=== PATIENT | female | born 1935 | race Caucasian/White ===

== ENCOUNTER 2018-04-20 11:21 | Emergency (ER) | payer MEDICARE, BC ==
[~2018-04-20 11:21] MED LIST: ASPI81TA52 PO; ATOR10TA87 PO; SYN0.088T PO
[2018-04-20 11:43] LABS: BASOPHILS % (AUTO) 0.4 % (0-1); EOSINOPHILS # (AUTO) 0.1 X10'3 (0-0.9); EOSINOPHILS % (AUTO) 1.3 % (0-6); HEMATOCRIT 43.6 % (35.0-45.0); LYMPHOCYTES # (AUTO) 1.4 X10'3 (1.1-4.8); LYMPHOCYTES % (AUTO) 20.1 % (21-51); MEAN CORPUSCULAR HEMOGLOBIN 31.9 PG (27.0-31.0); MEAN CORPUSCULAR HGB CONC 34.4 % (33.0-36.5); MEAN CORPUSCULAR VOLUME 92.8 FL (78-98); MONOCYTES # (AUTO) 0.5 X10'3 (0-0.9); MONOCYTES % (AUTO) 6.7 % (2-12); NEUTROPHILS # (AUTO) 5.1 X10'3 (1.8-7.7); NEUTROPHILS % (AUTO) 71.5 % (42-75); PLATELET COUNT 188 X10'3 (140-440); RED BLOOD COUNT 4.69 X10'6 (4.20-5.60); RED CELL DISTRIBUTION WIDTH 13.3 % (11.5-14.5); WHITE BLOOD COUNT 7.2 X10'3 (4.5-11.0)
[2018-04-20 11:53] LABS: PARTIAL THROMBOPLASTIN TIME 24 SECONDS (22-32)
[2018-04-20 11:57] LABS: ALANINE AMINOTRANSFERASE 43 U/L (12-78); ALBUMIN 3.6 G/DL (3.4-5.0); ALKALINE PHOSPHATASE 75 IU/L (46-116); ANION GAP 9 (8-16); ASPARTATE AMINO TRANSFERASE 30 U/L (10-37); BILIRUBIN,TOTAL 0.4 MG/DL (0.1-1.0); BLOOD UREA NITROGEN 19 MG/DL (7-18); BUN/CREATININE RATIO 20.7 (6.6-38.0); CALCIUM 9.1 MG/DL (8.5-10.1); CHLORIDE 104 MMOL/L (99-107); CREATININE 0.92 MG/DL (0.40-0.90); GLUCOSE 105 MG/DL (70-104); POTASSIUM 4.3 MMOL/L (3.5-5.1); SODIUM 138 MMOL/L (135-145); TOTAL CARBON DIOXIDE 25.4 MMOL/L (24-32); TOTAL PROTEIN 7.1 G/DL (6.4-8.2); eGFR 58 ML/MIN
[2018-04-20 14:53] VITALS: BP 156/80
== END 2018-04-20 14:54 | disposition home or self-care (01) ==
LOC: ER 11:21
DX: N64.4 Mastodynia (principal); N18.9 Chronic kidney disease, unspecified; E78.00 Pure hypercholesterolemia, unspecified; Z90.710 Acquired absence of both cervix and uterus; Z98.890 Other specified postprocedural states; Z88.2 Allergy status to sulfonamides; Z79.82 Long term (current) use of aspirin; Z79.899 Other long term (current) drug therapy
CPT/HCPCS: 36415; 71045; 80053; 84484; 85025; 85610; 85730; 93005; 99285

== ENCOUNTER 2019-09-10 11:26 | Emergency (ER) | payer MEDICARE, BC ==
[~2019-09-10] VITALS: Ht 160 cm; Wt 55.9 kg
[2019-09-10 13:28] LABS: BASOPHILS % (AUTO) 0.7 % (0-1); EOSINOPHILS # (AUTO) 0.1 X10'3 (0-0.9); EOSINOPHILS % (AUTO) 0.9 % (0-6); HEMATOCRIT 42.9 % (35.0-45.0); HEMOGLOBIN 14.4 g/dl (12.0-16.0); LYMPHOCYTES # (AUTO) 1.4 X10'3 (1.1-4.8); LYMPHOCYTES % (AUTO) 18.8 % (21-51); MEAN CORPUSCULAR HEMOGLOBIN 32.2 PG (27.0-31.0); MEAN CORPUSCULAR HGB CONC 33.6 g/dL (33.0-36.5); MEAN CORPUSCULAR VOLUME 95.7 FL (78-98); MEAN PLATELET VOLUME 8.2 FL (7.4-10.4); MONOCYTES # (AUTO) 0.5 X10'3 (0-0.9); MONOCYTES % (AUTO) 6.8 % (2-12); NEUTROPHILS # (AUTO) 5.4 X10'3 (1.8-7.7); NEUTROPHILS % (AUTO) 72.8 % (42-75); PLATELET COUNT 204 X10'3 (140-440); RED BLOOD COUNT 4.48 X10'6 (4.20-5.60); RED CELL DISTRIBUTION WIDTH 13.1 % (11.5-14.5); WHITE BLOOD COUNT 7.4 X10'3 (4.5-11.0)
[2019-09-10 13:42] LABS: ALANINE AMINOTRANSFERASE 20 U/L (12-78); ALBUMIN 3.7 G/DL (3.4-5.0); ALBUMIN/GLOBULIN RATIO 1.2 (1.1-1.5); ALKALINE PHOSPHATASE 75 IU/L (46-116); ANION GAP 7 (8-16); ASPARTATE AMINO TRANSFERASE 24 U/L (10-37); BILIRUBIN,TOTAL 0.7 MG/DL (0.1-1.0); BLOOD UREA NITROGEN 17 MG/DL (7-18); BUN/CREATININE RATIO 18.3 (6.6-38.0); CALCIUM 8.7 MG/DL (8.5-10.1); CHLORIDE 104 MMOL/L (99-107); CREATININE 0.93 MG/DL (0.40-0.90); GLUCOSE 95 MG/DL (70-104); POTASSIUM 3.9 MMOL/L (3.5-5.1); SODIUM 140 MMOL/L (135-145); TOTAL CARBON DIOXIDE 28.8 MMOL/L (24-32); TOTAL PROTEIN 6.8 G/DL (6.4-8.2); eGFR 58 ML/MIN
[2019-09-10 14:09] LABS: CLARITY,URINE CLEAR (Clear); COLOR,URINE YELLOW (Yellow); GLUCOSE, URINE NEGATIVE (Neg); KETONES,URINE NEGATIVE (Neg); LEUKOCYTE ESTERASE ,URINE NEGATIVE (Neg); NITRITES, URINE NEGATIVE (Neg); OCCULT BLOOD,URINE NEGATIVE (Neg); PROTEIN,URINE NEGATIVE (Neg); UA COLLECTION TYPE CLN CATCH MIDSTREAM; UROBILINOGEN,URINE 0.2 E.U/dL (0.2-1.0)
[2019-09-10 14:31] VITALS: BP 156/79
== END 2019-09-10 14:34 | disposition home or self-care (01) ==
LOC: ER 11:27
DX: R10.31 Right lower quadrant pain (principal); M70.60 Trochanteric bursitis, unspecified hip; E78.00 Pure hypercholesterolemia, unspecified; Z90.710 Acquired absence of both cervix and uterus; Z98.890 Other specified postprocedural states; Z88.2 Allergy status to sulfonamides; Z79.82 Long term (current) use of aspirin; Z79.899 Other long term (current) drug therapy
CPT/HCPCS: 36415; 74176; 80053; 81003; 85025; 99284

== ENCOUNTER 2019-10-12 09:19 | Inpatient (IN) | payer MEDICARE, BC ==
[2019-10-07 10:36] LABS: BASOPHILS % (AUTO) 0.8 % (0-1); EOSINOPHILS # (AUTO) 0.1 X10'3 (0-0.9); LYMPHOCYTES # (AUTO) 1.2 X10'3 (1.1-4.8); LYMPHOCYTES % (AUTO) 20.7 % (21-51); MEAN CORPUSCULAR HEMOGLOBIN 32.6 PG (27.0-31.0); MEAN CORPUSCULAR HGB CONC 34.2 g/dL (33.0-36.5); MEAN CORPUSCULAR VOLUME 95.4 FL (78-98); MEAN PLATELET VOLUME 7.7 FL (7.4-10.4); MONOCYTES # (AUTO) 0.4 X10'3 (0-0.9); MONOCYTES % (AUTO) 7.5 % (2-12); PRE OP HEMATOCRIT 40.8 % (35.0-45.0); PRE OP HEMOGLOBIN 13.9 g/dL (12.0-16.0); PRE OP PLATELET COUNT 209 X10'3 (140-440); RED BLOOD COUNT 4.27 X10'6 (4.20-5.60); RED CELL DISTRIBUTION WIDTH 13.6 % (11.5-14.5)
[2019-10-07 10:39] LABS: CLARITY,URINE SLIGHTLY CLOUDY (Clear); COLOR,URINE STRAW (Yellow); GLUCOSE, URINE NEGATIVE (Neg); KETONES,URINE NEGATIVE (Neg); LEUKOCYTE ESTERASE ,URINE SMALL (Neg); NITRITES, URINE NEGATIVE (Neg); OCCULT BLOOD,URINE NEGATIVE (Neg); PROTEIN,URINE NEGATIVE (Neg); UROBILINOGEN,URINE 0.2 E.U/dL (0.2-1.0)
[2019-10-07 10:40] LABS: UA COLLECTION TYPE CLN CATCH MIDSTREAM
[2019-10-07 10:47] LABS: BACTERIA,URINE 1+ /HPF (Neg); RBC,URINE 0-2 /HPF (0-2); SQUAMOUS EPITHELIAL CELL,UR MODERATE /LPF (FEW)
[2019-10-07 10:48] LABS: WBC,URINE 0-4 /HPF (0-4)
[2019-10-07 10:53] LABS: ALBUMIN 3.5 G/DL (3.4-5.0); ALBUMIN/GLOBULIN RATIO 1.1 (1.1-1.5); ALKALINE PHOSPHATASE 78 IU/L (46-116); BLOOD UREA NITROGEN 19 MG/DL (7-18); BUN/CREATININE RATIO 20.2 (6.6-38.0); CALCIUM 8.6 MG/DL (8.5-10.1); CHLORIDE 109 MMOL/L (99-107); CREATININE 0.94 MG/DL (0.40-0.90); PRE OP ALT 30 U/L (30-65); PRE OP ANION GAP 3 (8-16); PRE OP AST 26 U/L (10-37); PRE OP BILIRUB, TOTAL 0.4 MG/DL (0.0-1.0); PRE OP GLUCOSE 93 MG/DL (70-104); PRE OP POTASSIUM 3.9 MMOL/L (3.4-5.1); PRE OP SODIUM 143 MMOL/L (135-145); TOTAL CARBON DIOXIDE 30.6 MMOL/L (24-32); TOTAL PROTEIN 6.7 G/DL (6.4-8.2); eGFR 57 ML/MIN
[~2019-10-12] VITALS: Ht 160 cm; Wt 57.7 kg
[2019-10-12] VITALS (17 sets, daily range): BP systolic 105–164; BP diastolic 54–82
[~2019-10-12 09:19] MED LIST changes: -ASPI81TA52 PO; +cefazolin/dext.iso 2gm/100ml 100 ML IV ONE; +famotidine 10mg tablet PO ONE; +ringers solution, lacted 1,000 ML IV SCH
[2019-10-12] MEDS ORDERED: ringers solution, lacted 1,000 ML IV SCH (16:18)
[2019-10-12] MEDS ORDERED: fentaNYL/PF 50MCG/1 ML 2ML syringe IV PRN ×2 (16:20)
[2019-10-12] MEDS ORDERED: labetalol 20mg/4ml (5mg/ml) syringe IV PRN (16:20)
[2019-10-12] MEDS ORDERED: morphine 4 MG/ML inj SYRINge IV PRN (16:20)
[2019-10-12] MEDS ORDERED: ondansetron/PF 4mg/2ml inj IV PRN ×3 (16:20→20:45)
[2019-10-12] MEDS ORDERED: hydrALAZINE 20mg/ml inj. IV PRN (16:20)
[2019-10-12] MEDS ORDERED: BUPIVAcaine/PF 2.5 mg/ml (0.25%) 30ml vial ONE (16:53)
[2019-10-12] MEDS ORDERED: BUPIVACAINE liposomal/PF 13.3 MG/ML vial IM ONE (16:53)
[2019-10-12] MEDS ORDERED: sevoflurane 250ml liquid IH ONE (17:36)
[2019-10-12] MEDS ORDERED: propofol inj 20 ML IV ONE (17:42)
[2019-10-12] MEDS ORDERED: fentaNYL/PF 50MCG/1 ML 2ML syringe ONE (17:42)
[2019-10-12] MEDS ORDERED: ceFAZolin 1000mg inj ONE (17:56)
[2019-10-12] MEDS ORDERED: dexamethasone sod phosphate 4mg/ml inj. ONE (18:04)
[2019-10-12] MEDS ORDERED: ondansetron/PF 4mg/2ml inj ONE (18:04)
[2019-10-12] MEDS ORDERED: albumin (Human) 5% 250ml 250 ML IV ONE (18:40)
--- NOTE | 2019-10-12 19:18 | NUR ---
Received from OR via [facility], accompanied by Anesthesiologist DR ARAUZ and report given by Anesthesiologist. PT DROWSY, DENIES PAIN, RIGHT GROIN W/FOAM TAPE COVERING INCISION CDI. Addendum: 10/12/19 at 2028 by Luz Shah RN Amended: Links added.
[2019-10-12] MEDS: morphine 4 MG/ML inj SYRINge IV PRN ×2 (20:01→20:15)
[2019-10-12] MEDS ORDERED: acetaminophen 1,000mg/100ml IV 100 ML IV ONE (20:20)
[2019-10-12] MEDS ORDERED: ketorolac trometh. 30mg/ml inj. IV ONE (20:20)
[2019-10-12] MEDS ORDERED: normal saline 1000ml 1,000 ML IV SCH (20:41)
[2019-10-12] MEDS ORDERED: mag hydrox/Alum hydrox/simeth 30ml oral suspension PO PRN (20:45)
[2019-10-12] MEDS ORDERED: HYDROcodone/acetaminophen 10/325mg tab PO PRN (20:45)
[2019-10-12] MEDS ORDERED: magnesium hydroxide 30ml (MOM) UD suspension PO PRN (20:45)
[2019-10-12] MEDS ORDERED: acetaminophen 325mg tablet PO PRN (20:45)
[2019-10-12] MEDS ORDERED: HYDROcodone/acetaminophen 5mg/325mg tablet PO PRN (20:45)
--- NOTE | 2019-10-12 21:28 | NUR ---
Report called to receiving nurse. Transferred via BED, 1 BAG OF PERSONAL Belongings SENT W/PT TO ROOM 349B, RECEIVING RN AT BEDSIDE TO RECEIVE PT, BLL, CALL LIGHT GIVEN, SIDE RAILS UP X 2. Special Issues communicated to receiving nurse. YES. Addendum: 10/12/19 at 2137 by Luz Shah RN Amended: Links added.
--- NOTE | 2019-10-12 21:35 | NUR ---
Patient in room [facility] 349. I have received report from and had the opportunity to ask questions and assume patient care.
--- NOTE | 2019-10-12 22:00 | NUR ---
Pt arrived on the unit via gurney. VSS, no signs of distress. Will continue to monitor.
[2019-10-13] VITALS: BP 108/56
--- NOTE | 2019-10-13 06:30 | NUR ---
Problems reprioritized. Patient report given, questions answered & plan of care reviewed with Harriet MOSLEY.
--- NOTE | 2019-10-13 06:33 | NUR ---
Patient in room [facility] 349. I have received report from Luz MOSLEY and had the opportunity to ask questions and assume patient care. Addendum: 10/13/19 at 0645 by Beckie Duran RN entered incorrect time, report received at 2687 on 10-12-19
--- NOTE | 2019-10-13 06:33 | NUR ---
Patient in room [facility] 349. I have received report from DIMITRI Levin and had the opportunity to ask questions and assume patient care.
--- NOTE | 2019-10-13 06:36 | NUR ---
Problems reprioritized. Patient report given, questions answered & plan of care reviewed with Harriet MOSLEY.
[2019-10-13] MEDS ORDERED: levoTHYROXINE 75mcg tablet PO SCH (07:30)
[2019-10-13 08:00] VITALS: BP 130/61
[2019-10-13] MEDS ORDERED: atorvastatin 10mg tablet PO SCH (08:00)
[2019-10-13 11:00] VITALS: BP 115/59
--- NOTE | 2019-10-13 14:42 | NUR ---
pt. discharged from facility at 1315. pt. was wheeled to private vehicle accompanied by staff and her . pt. signed and understood all paperwork. IV was d/c intact. pt. understands to call to make f/u appointments and has Dr. Munoz's office number. pt. had no new meds to call in. pt. left with all belongings.
[2019-10-15] MEDS ORDERED: ACET-3068 PO (12:56)
[2019-10-15] MEDS ORDERED: LEVO75TA PO (12:56)
--- NOTE | 2019-10-15 14:25 | NUR ---
Case Management DC follow-up: LM/VM asked pt to rtn phone call if any questions/concerns or to relay post op status of pt.
== END 2019-10-13 13:19 | disposition home or self-care (01) | DRG 352 ==
LOC: PAS 09:19 → SUR 3N 20:41 → OBSVTOIN 10-13 08:40
PROVIDERS: ADMIT Surgery; ATTEND Surgery
PROC: 0YU70JZ Supplement Right Femoral Region with Synthetic Substitute, Open Approach (ICD-10-PCS; principal; 2019-10-12 17:36)
DX: K40.91 Unilateral inguinal hernia, without obstruction or gangrene, recurrent (principal)
CPT/HCPCS: 36415; 80053; 81001; 82948; 84443; 85025; 87077; 87081; 87088; 87186; 93005; A4215; A4618; A6449; A7000; C1781; C9290; G0378; J0131; J0690; J1100; J1885; J2270; J2405; J2704; J3010; J3490; J7030; J7120; P9045

== ENCOUNTER 2023-05-23 08:53 | Inpatient (IN) | payer MEDICARE, BC ==
[~2023-05-23] VITALS: Ht 162.6 cm; Wt 58.0 kg
[~2023-05-23 08:53] MED LIST changes: +APIX5TAB3 PO; -ATOR10TA87 PO; +FURO-150 PO; +LEVO88TA2 PO; +ROSU10TA28 PO; -SYN0.088T PO; -cefazolin/dext.iso 2gm/100ml 100 ML IV ONE; -famotidine 10mg tablet PO ONE; -ringers solution, lacted 1,000 ML IV SCH
[2023-05-23 10:21] LABS: BASOPHILS % (AUTO) 0.4 % (0-1); EOSINOPHILS % (AUTO) 0.5 % (0-6); HEMATOCRIT 43.8 % (35.0-45.0); HEMOGLOBIN 14.6 g/dl (12.0-16.0); LYMPHOCYTES # (AUTO) 1.2 X10'3 (1.1-4.8); LYMPHOCYTES % (AUTO) 15.9 % (21-51); MEAN CORPUSCULAR HEMOGLOBIN 31.6 PG (27.0-31.0); MEAN CORPUSCULAR HGB CONC 33.3 g/dL (33.0-36.5); MEAN CORPUSCULAR VOLUME 94.9 FL (78-98); MEAN PLATELET VOLUME 8.1 FL (7.4-10.4); MONOCYTES # (AUTO) 0.5 X10'3 (0-0.9); NEUTROPHILS # (AUTO) 5.8 X10'3 (1.8-7.7); NEUTROPHILS % (AUTO) 76.2 % (42-75); PLATELET COUNT 179 X10'3 (140-440); RED BLOOD COUNT 4.61 X10'6 (4.20-5.60); RED CELL DISTRIBUTION WIDTH 14.2 % (11.5-14.5); WHITE BLOOD COUNT 7.6 X10'3 (4.5-11.0)
[2023-05-23 10:41] LABS: ALANINE AMINOTRANSFERASE 30 U/L (12-78); ALBUMIN 3.7 G/DL (3.4-5.0); ALBUMIN/GLOBULIN RATIO 1.1 (1.1-1.5); ALKALINE PHOSPHATASE 70 IU/L (46-116); AMYLASE 71 U/L (25-115); ANION GAP 9 (8-16); ASPARTATE AMINO TRANSFERASE 22 U/L (10-37); BILIRUBIN,TOTAL 0.9 MG/DL (0.1-1.0); BLOOD UREA NITROGEN 12 MG/DL (7-18); BUN/CREATININE RATIO 15.4 (10.0-20.0); CALCIUM 8.9 MG/DL (8.5-10.1); CHLORIDE 106 MMOL/L (99-107); CREATININE 0.78 MG/DL (0.40-0.90); GLUCOSE 94 MG/DL (70-104); LIPASE 151 U/L (73-393); POTASSIUM 3.2 MMOL/L (3.5-5.1); SODIUM 141 MMOL/L (135-145); TOTAL CARBON DIOXIDE 26.5 MMOL/L (24-32); TOTAL PROTEIN 7.2 G/DL (6.4-8.2); eCRCL 44 ML/MIN; eGFR 70 ML/MIN
[2023-05-23] MEDS ORDERED: diatrozoate meglu/diatrozoate sod (37% iodine) 120ML oral solution PO SCH (12:55)
--- NOTE | 2023-05-23 12:56 | NUR ---
RECEIVED REPORT FROM LAYLA MOSLEY ASSUMING CARE OF PT
[2023-05-23] MEDS ORDERED: Potassium Cl inj 20 MEQ in normal saline 1000ml 990 ML IV SCH (13:10)
[2023-05-23] MEDS ORDERED: diatr meglu/diatrizoate 30ml oral sol.-(3 dose) bottle PO SCH (13:47)
[2023-05-23] MEDS: potassium Cl 20mEq in NS 1,000 ML IV SCH ×2 (13:56→23:15)
--- NOTE | 2023-05-23 14:23 | NUR ---
[id number] plan of care discussed with pt all questions and concerns addressed to her verbal satisfaction. Gastrographin oral contrast started.
--- NOTE | 2023-05-23 14:52 | NUR ---
correction pt will have colonoscopy tomorrow not endoscopy. 2nd dose gastrografin admin pt tolerating it well
[2023-05-23] MEDS ORDERED: iohexol 300mg/ml 100ml inj. ONE (15:46)
--- NOTE | 2023-05-23 15:52 | NUR ---
1430 #3 dose gastrografin admin. pt to ct via wc with tech
[2023-05-23 17:45] LABS: MAGNESIUM 2.1 MG/DL (1.5-2.4)
--- NOTE | 2023-05-23 18:48 | NUR ---
echo at bedside
[2023-05-23] MEDS ORDERED: ondansetron/PF 4mg/2ml inj IV PRN (19:30)
[2023-05-23] MEDS ORDERED: magnesium 2GM in 50ml NS 50 ML IV PRN (19:30)
[2023-05-23] MEDS ORDERED: potassium Cl 40MEQ/1/2NS 520ml 520 ML IV PRN (19:30)
[2023-05-23] MEDS ORDERED: potassium Cl 20 mEq SR tablet PO PRN (19:30)
[2023-05-23] MEDS ORDERED: magnesium Cl slow-release 64mg tablet PO PRN (19:30)
[2023-05-23] MEDS ORDERED: HYDROmorphone/PF 0.2 MG/ML SYRINGE IV PRN (19:30)
[2023-05-23] MEDS ORDERED: magnesium 4gm in 100ml NS 100 ML IV PRN (19:30)
[2023-05-23] MEDS ORDERED: metoclopramide 5 mg/ml inj IV PRN (19:30)
[2023-05-23] MEDS ORDERED: morphine 2 MG/ML inj. syringe IV PRN (19:30)
[2023-05-23 19:53] LABS: APTT 27 SECONDS (22-32); PROTHROMBIN TIME 10.8 SECONDS (9.0-12.0)
--- NOTE | 2023-05-23 21:21 | NUR ---
PT AMBULATED TO RESTROOM
[2023-05-23] MEDS: potassium Cl 20 mEq SR tablet PO PRN (21:41)
[2023-05-23] MEDS: K and/or MAG REPLACEMENT MC SCH (21:41)
[2023-05-23] MEDS: normal saline 1000ml 1,000 ML IV SCH (21:42)
[2023-05-23 22:02] LABS: BILIRUBIN,URINE NEGATIVE (Neg); CLARITY,URINE CLEAR (Clear); COLOR,URINE YELLOW (Yellow); GLUCOSE, URINE NEGATIVE (Neg); KETONES,URINE NEGATIVE (Neg); LEUKOCYTE ESTERASE ,URINE NEGATIVE (Neg); NITRITES, URINE NEGATIVE (Neg); OCCULT BLOOD,URINE NEGATIVE (Neg); PROTEIN,URINE NEGATIVE (Neg); UROBILINOGEN,URINE 0.2 E.U/dL (0.2-1.0)
[2023-05-23 22:09] LABS: UA COLLECTION TYPE CLN CATCH MIDSTREAM
[2023-05-24] VITALS (11 sets, daily range): BP systolic 101–161; BP diastolic 52–92; PULSE 49–96; RESP 15–20; TEMP 97.8–98.4; O2SAT 96–100
[2023-05-24] MEDS: potassium Cl 20 mEq SR tablet PO PRN (04:23)
[2023-05-24 04:54] LABS: BASOPHILS % (AUTO) 0.5 % (0-1); EOSINOPHILS # (AUTO) 0.1 X10'3 (0-0.9); EOSINOPHILS % (AUTO) 1.3 % (0-6); HEMATOCRIT 43.5 % (35.0-45.0); HEMOGLOBIN 14.4 g/dl (12.0-16.0); LYMPHOCYTES # (AUTO) 1.1 X10'3 (1.1-4.8); LYMPHOCYTES % (AUTO) 22.7 % (21-51); MEAN CORPUSCULAR HEMOGLOBIN 31.3 PG (27.0-31.0); MEAN CORPUSCULAR VOLUME 94.8 FL (78-98); MEAN PLATELET VOLUME 8.5 FL (7.4-10.4); MONOCYTES # (AUTO) 0.5 X10'3 (0-0.9); NEUTROPHILS # (AUTO) 3.3 X10'3 (1.8-7.7); NEUTROPHILS % (AUTO) 66.5 % (42-75); PLATELET COUNT 160 X10'3 (140-440); RED BLOOD COUNT 4.59 X10'6 (4.20-5.60); RED CELL DISTRIBUTION WIDTH 13.8 % (11.5-14.5)
[2023-05-24 05:00] LABS: ALBUMIN 3.3 G/DL (3.4-5.0); ANION GAP 12 (8-16); BLOOD UREA NITROGEN 9 MG/DL (7-18); CALCIUM 8.3 MG/DL (8.5-10.1); CHLORIDE 108 MMOL/L (99-107); CREATININE 0.75 MG/DL (0.40-0.90); GLUCOSE 97 MG/DL (70-104); POTASSIUM 3.5 MMOL/L (3.5-5.1); SODIUM 144 MMOL/L (135-145); TOTAL CARBON DIOXIDE 24.5 MMOL/L (24-32); eCRCL 46 ML/MIN; eGFR 73 ML/MIN
--- NOTE | 2023-05-24 07:59 | NUR ---
per Dr Ortega, he has talked to Dr Chong and pt needs colonoscopy today. DIMITRI Licea from [facility] will call Dr Chong and see plan for colonoscopy and prep
[2023-05-24] MEDS: K and/or MAG REPLACEMENT MC SCH ×2 (08:00→19:03)
[2023-05-24] MEDS ORDERED: PEG 3350/Na sulf,bicarb,Cl/KCl oral sol 4 liter bottle PO ONE (08:55)
[2023-05-24] MEDS: potassium Cl 20mEq in NS 1,000 ML IV SCH ×2 (09:15→10:16)
[2023-05-24] MEDS ORDERED: MIDAZolam 1 MG/ML 5ML VIAL ONE (14:17)
[2023-05-24] MEDS ORDERED: fentaNYL/PF 50MCG/1 ML 2ML syringe ONE (14:17)
[2023-05-24] MEDS: normal saline 1000ml 1,000 ML IV SCH (16:12)
--- NOTE | 2023-05-24 23:29 | NUR ---
patient sleeping comfortably at this time, will get vitals when pt wakes up
[2023-05-25 06:00] VITALS: BP 119/69; PULSE 66; RESP 20; TEMP 97.9; O2SAT 97
[2023-05-25 06:26] LABS: ALBUMIN 3.2 G/DL (3.4-5.0); ANION GAP 14 (8-16); BASOPHILS % (AUTO) 0.6 % (0-1); BLOOD UREA NITROGEN 11 MG/DL (7-18); BUN/CREATININE RATIO 15.9 (10.0-20.0); CALCIUM 8.7 MG/DL (8.5-10.1); CHLORIDE 107 MMOL/L (99-107); CREATININE 0.69 MG/DL (0.40-0.90); EOSINOPHILS # (AUTO) 0.1 X10'3 (0-0.9); EOSINOPHILS % (AUTO) 2.3 % (0-6); GLUCOSE 69 MG/DL (70-104); HEMATOCRIT 42.5 % (35.0-45.0); HEMOGLOBIN 14.5 g/dl (12.0-16.0); LYMPHOCYTES # (AUTO) 1.5 X10'3 (1.1-4.8); LYMPHOCYTES % (AUTO) 27.5 % (21-51); MAGNESIUM 2.1 MG/DL (1.5-2.4); MEAN CORPUSCULAR HEMOGLOBIN 32.2 PG (27.0-31.0); MEAN CORPUSCULAR HGB CONC 34.1 g/dL (33.0-36.5); MEAN CORPUSCULAR VOLUME 94.4 FL (78-98); MEAN PLATELET VOLUME 8.8 FL (7.4-10.4); MONOCYTES # (AUTO) 0.5 X10'3 (0-0.9); MONOCYTES % (AUTO) 8.5 % (2-12); NEUTROPHILS # (AUTO) 3.3 X10'3 (1.8-7.7); NEUTROPHILS % (AUTO) 61.1 % (42-75); PLATELET COUNT 167 X10'3 (140-440); POTASSIUM 3.6 MMOL/L (3.5-5.1); RED CELL DISTRIBUTION WIDTH 14.1 % (11.5-14.5); SODIUM 141 MMOL/L (135-145); TOTAL CARBON DIOXIDE 20.2 MMOL/L (24-32); WHITE BLOOD COUNT 5.5 X10'3 (4.5-11.0); eCRCL 50 ML/MIN; eGFR 80 ML/MIN
--- NOTE | 2023-05-25 06:50 | NUR ---
Patient in room [facility]TH[facility] 4013. I have received report from ANISH MOSLEY and had the opportunity to ask questions and assume patient care.
--- NOTE | 2023-05-25 06:55 | NUR ---
Patient report given to Brian RN, patient awake and slightly anxious in room. She began to feel faint and we checked vitals which were normal but accucheck was 54. Patient given orange juice and Brian will recheck accucheck. Patient feeling better at this time.
[2023-05-25] MEDS: K and/or MAG REPLACEMENT MC SCH (08:00)
[2023-05-25 10:00] VITALS: BP 148/89; PULSE 83; RESP 15; TEMP 97.7; O2SAT 95
[2023-05-25] MEDS: normal saline 1000ml 1,000 ML IV SCH (11:30)
[2023-05-25 14:05] VITALS: RESP 16; O2SAT 95
[2023-05-25] MEDS ORDERED: POLY17PO10 PO (15:09)
--- NOTE | 2023-05-25 15:51 | NUR ---
PT. ALERT AND STABLE UPON DISCHARGE. PT. SAFELY ESCORTED INTO PRIVATE VEHICLE WITH SPOUSE. PT. IV CANNULA WHOLE AND INTACT UPON DISCHARGE. PT. EDUCATED ON DIET AND MEDICATIONS. PT. EDUCATED TO FOLLOW UP WITH PRIMARY CARE PROVIDER IN 1 WEEK. PT. LEFT WITH ALL BELONGINGS.
== END 2023-05-25 15:45 | disposition home or self-care (01) | DRG 392 ==
LOC: ER 08:54 → ED HOLD 19:32 → ORTHO 4S 05-24 08:05
PROVIDERS: ADMIT Internal Medicine; ATTEND Internal Medicine
PROC: BW211ZZ Computerized Tomography (CT Scan) of Abdomen and Pelvis using Low Osmolar Contrast (ICD-10-PCS; 2023-05-23)
PROC: 0DJD8ZZ Inspection of Lower Intestinal Tract, Via Natural or Artificial Opening Endoscopic (ICD-10-PCS; principal; 2023-05-24)
DX: K59.00 Constipation, unspecified (principal); K57.30 Diverticulosis of large intestine without perforation or abscess without bleeding; E78.00 Pure hypercholesterolemia, unspecified; E03.9 Hypothyroidism, unspecified; K83.8 Other specified diseases of biliary tract; E87.6 Hypokalemia; Z88.2 Allergy status to sulfonamides; Z90.710 Acquired absence of both cervix and uterus; Z79.899 Other long term (current) drug therapy; Z79.01 Long term (current) use of anticoagulants
CPT/HCPCS: 36415; 45378; 74177; 76700; 80048; 80053; 81003; 82150; 82948; 83605; 83690; 83735; 84145; 85025; 85610; 85730; 87040; 87081; 93975; 99152; 99153; 99285; A4620; A6449; G0378; J2250; J3010; J3480; J3490; J7030; Q9963; Q9967